=== PATIENT | male | born 1990 | race American Indian/Alaskan Native ===

== ENCOUNTER 2018-04-11 12:17 | Emergency (ER) | payer SELFPAY ==
[2018-04-11] MEDS ORDERED: ULTRAM PO ONE (14:03)
--- NOTE | 2018-04-11 14:40 | Emergency Department Report ---
ED ENT HPI - General Chief complaint: Sore Throat Stated complaint: SORE THROAT Time Seen by Provider: 04/11/18 13:48 Source: patient Mode of arrival: Ambulatory Limitations: No Limitations - History of Present Illness Initial comments: 27-year-old male with a past medical history of "chronic gastroenteritis" presents to the hospital complains of some days and nausea, sore throat, chills , generalized body aches. Overall body aches are moderate. Sulfa worse with swallowing. Denies shortness of breath and is able to swallow secretions. No sick contacts, recent travel, cough. Patient denies diarrhea or vomiting. Patient does have a primary care doctor - Related Data Previous Rx's Medication Instructions Recorded Last Taken Type Amoxicillin 500 mg PO BID #20 capsule 04/11/18 Unknown Rx Docusate Sodium [Colace] 100 mg PO BID PRN #20 capsule 04/11/18 Unknown Rx Promethazine [Phenergan TAB] 25 mg PO Q8HR PRN #20 tab 04/11/18 Unknown Rx traMADol [Ultram 50 MG tab] 50 mg PO Q6HR PRN #20 tablet 04/11/18 Unknown Rx Allergies Allergy/AdvReac Type Severity Reaction Status Date / Time No Known Allergies Allergy Unverified 04/11/18 12:33 ED Dental HPI - General Chief complaint: Sore Throat Stated complaint: SORE THROAT Time Seen by Provider: 04/11/18 13:48 Source: patient Mode of arrival: Ambulatory Limitations: No Limitations - Related Data Previous Rx's Medication Instructions Recorded Last Taken Type Amoxicillin 500 mg PO BID #20 capsule 04/11/18 Unknown Rx Docusate Sodium [Colace] 100 mg PO BID PRN #20 capsule 04/11/18 Unknown Rx Promethazine [Phenergan TAB] 25 mg PO Q8HR PRN #20 tab 04/11/18 Unknown Rx traMADol [Ultram 50 MG tab] 50 mg PO Q6HR PRN #20 tablet 04/11/18 Unknown Rx Allergies Allergy/AdvReac Type Severity Reaction Status Date / Time No Known Allergies Allergy Unverified 04/11/18 12:33 ED Review of Systems ROS: Stated complaint: SORE THROAT Other details as noted in HPI Comment: All other systems reviewed and negative ED Past Medical Hx - Past Medical History Previous Medical History?: No - Surgical History Past Surgical History?: No - Social History Smoking Status: Current Every Day Smoker Substance Use Type: None - Medications Home Medications: Home Medications Medication Instructions Recorded Confirmed Last Taken Type Amoxicillin 500 mg PO BID #20 capsule 04/11/18 Unknown Rx Docusate Sodium [Colace] 100 mg PO BID PRN #20 capsule 04/11/18 Unknown Rx Promethazine [Phenergan TAB] 25 mg PO Q8HR PRN #20 tab 04/11/18 Unknown Rx traMADol [Ultram 50 MG tab] 50 mg PO Q6HR PRN #20 tablet 04/11/18 Unknown Rx ED Physical Exam - General Limitations: No Limitations - Other Other exam information: General: No limitations, patient is alert in no acute distress Head exam: Atraumatic, normocephalic Eyes exam: Normal appearance, pupils equal reactive to light, extraocular movements intact ENT: Moist mucous membrane, right tonsil mildly swollen with mild exudate. Tender cervical nodes. Neck exam: Normal inspection, full range of motion, no meningismus nontender Respiratory exam: Clear to auscultation bilateral, no wheezes, rales, crackles Cardiovascular: Normal rate and rhythm, normal heart sounds Abdomen: Soft, nondistended, and nontender, with normal bowel sounds, no rebound, or guarding Extremity: Full range of motion normal inspection no deformity Back: Normal Inspection, full range of motion, no tenderness Neurologic: Alert, oriented x3, cranial nerves intact, no motor or sensory deficit Psychiatric: normal affect, normal mood Skin: Warm, dry, intact ED Course Vital Signs 04/11/18 12:30 Temperature 98.6 F Pulse Rate 70 Respiratory 16 Rate Blood Pressure 116/69 O2 Sat by Pulse 99 Oximetry - Reevaluation(s) Reevaluation #1: 04/11/18 14:37 patient given tramadol in the ED ED Medical Decision Making - Medical Decision Making Sore throat and body aches and subjective fever Patient will be treated empirically for pharyngitis with amoxicillin He downloaded the [employer] jolly on Phone to assist with affordability of medication Requesting Phenergan for his chronic nausea and vomiting secondary to his chronic gastrointestinal issues - Differential Diagnosis viral syndrome, pharyngitis, strep throat Critical Care Time: No Critical care attestation.: If time is entered above; I have spent that time in minutes in the direct care of this critically ill patient, excluding procedure time. ED Disposition Clinical Impression: Pharyngitis, Chronic nausea Disposition: DC-01 TO HOME OR SELFCARE Is pt being admited?: No Does the pt Need Aspirin: No Condition: Stable Instructions: Pharyngitis (ED) Additional Instructions: Take the medication as prescribed. Follow-up with your doctor or the clinic provided. Return if symptoms worsen as indicated by your discharge instructions Prescriptions: Amoxicillin 500 mg PO BID #20 capsule Docusate Sodium [Colace] 100 mg PO BID PRN #20 capsule PRN Reason: Constipation Promethazine [Phenergan TAB] 25 mg PO Q8HR PRN #20 tab PRN Reason: Nausea traMADol [Ultram 50 MG tab] 50 mg PO Q6HR PRN #20 tablet PRN Reason: Pain Referrals: PRIMARY CARE, [Primary Care Provider] - 3-5 Days [facility] [Provider Group] - 3-5 Days Forms: Work/School Release Form(ED) Time of Disposition: 14:40
[2018-04-11 15:02] VITALS: BP 133/86
== END 2018-04-11 15:03 | disposition home or self-care (01) ==
LOC: ED 12:17
DX: J02.9 Acute pharyngitis, unspecified (principal); R11.0 Nausea; F17.200 Nicotine dependence, unspecified, uncomplicated
CPT/HCPCS: 99282

== ENCOUNTER 2020-10-06 23:12 | Emergency (ER) | payer SELFPAY ==
[2020-10-07 00:27] LABS: Basophils # (Auto) 0.1 K/mm3 (0.0-0.1); Basophils % (Auto) 0.7 % (0.0-1.8); Eosinophils # (Auto) 0.3 K/mm3 (0.0-0.4); Eosinophils % (Auto) 2.6 % (0.0-4.3); Hematocrit 46.1 % (35.5-45.6); Hemoglobin 15.1 gm/dl (11.8-15.2); Lymphocytes # (Auto) 2.5 K/mm3 (1.2-5.4); Lymphocytes % (Auto) 21.6 % (13.4-35.0); Mean Corpuscular HGB Conc 33 % (32-34); Mean Corpuscular Volume 87 fl (84-94); Monocytes # (Auto) 0.6 K/mm3 (0.0-0.8); Monocytes % (Auto) 5.5 % (0.0-7.3); Platelet Count 204 K/mm3 (140-440); Red Blood Count 5.29 M/mm3 (3.65-5.03); Red Cell Distribution Width 14.3 % (13.2-15.2)
[2020-10-07 00:51] LABS: Alanine Aminotransferase 20 units/L (7-56); Albumin 3.8 g/dL (3.9-5); BUN/Creatinine Ratio 10; Blood Urea Nitrogen 11 mg/dL (9-20); Calcium 8.9 mg/dL (8.4-10.2); Hemolysis Index 15
--- NOTE | 2020-10-07 03:29 | Emergency Department Report ---
ED General Adult HPI - General Chief complaint: Abdominal Pain Stated complaint: SHARP STOMACH PAIN Time Seen by Provider: 10/07/20 03:25 Source: patient Mode of arrival: Ambulatory Limitations: No Limitations - History of Present Illness Initial comments: Patient is a 30-year-old male that presents emergency room for abdominal pain nausea vomiting x2 days. Patient states that his abdominal pain and nausea are intermittent. Patient states not having at this time. Patient states it is a abdominal cramping that comes and goes. Patient denies vomiting. Patient denies severe pain. Patient states when it comes it is a 4-6 out of 10. Patient states that it is tolerable. Patient dates he has history of Crohn's. Patient states when the pain comes periumbilical. Patient denies fever and chills. Patient denies blood in his stool. Patient denies diarrhea. Patient states that he actually came in for an STD exposure. Patient states he wants to get checked with his girlfriend and the girlfriend came out positive for gonorrhea. Patient denies penile discharge. Patient denies dysuria. Patient denies any lower abdominal pain. Patient states he wants to be treated here. Patient states he does not want to go to another place. Patient states that the abdominal pain started shortly after being told that he might have an STD. Patient states he has been anxious. Patient denies recent travel. Patient denies recent international travel. Patient denies exposure to the novel coronavirus. Patient denies sick contacts. Patient denies fever and chills. Patient denies cough. Patient denies diarrhea. Patient denies coming in contact with anybody with symptoms of the novel coronavirus. -: Sudden - Related Data Previous Rx's Medication Instructions Recorded Last Taken Type Amoxicillin 500 mg PO BID #20 capsule 04/11/18 Unknown Rx Docusate Sodium [Colace] 100 mg PO BID PRN #20 capsule 04/11/18 Unknown Rx Promethazine [Phenergan TAB] 25 mg PO Q8HR PRN #20 tab 04/11/18 Unknown Rx traMADoL [Ultram 50 MG tab] 50 mg PO Q6HR PRN #20 tablet 04/11/18 Unknown Rx Azithromycin [Zithromax] 500 mg PO DAILY #2 tablet 10/07/20 Unknown Rx Sulfamethoxazole/Trimethoprim 1 each PO BID 7 Days #14 tablet 10/07/20 Unknown Rx [Bactrim DS TAB] Allergies Allergy/AdvReac Type Severity Reaction Status Date / Time No Known Allergies Allergy Unverified 04/11/18 12:33 ED Review of Systems ROS: Stated complaint: SHARP STOMACH PAIN Other details as noted in HPI Constitutional: denies: chills, fever Eyes: denies: eye pain, eye discharge, vision change ENT: denies: ear pain, throat pain Respiratory: denies: cough, shortness of breath, wheezing Cardiovascular: denies: chest pain, palpitations Endocrine: no symptoms reported Gastrointestinal: abdominal pain. denies: nausea, diarrhea Genitourinary: denies: urgency, dysuria Musculoskeletal: denies: back pain, joint swelling, arthralgia Skin: denies: rash, lesions Neurological: denies: headache, weakness, paresthesias Psychiatric: denies: anxiety, depression Hematological/Lymphatic: denies: easy bleeding, easy bruising ED Past Medical Hx - Past Medical History Previous Medical History?: Yes Additional medical history: Matt's Disesse - Surgical History Past Surgical History?: No - Family History Family history: no significant - Social History Smoking Status: Current Every Day Smoker Substance Use Type: Marijuana - Medications Home Medications: Home Medications Medication Instructions Recorded Confirmed Last Taken Type Amoxicillin 500 mg PO BID #20 capsule 04/11/18 Unknown Rx Docusate Sodium [Colace] 100 mg PO BID PRN #20 capsule 04/11/18 Unknown Rx Promethazine [Phenergan TAB] 25 mg PO Q8HR PRN #20 tab 04/11/18 Unknown Rx traMADoL [Ultram 50 MG tab] 50 mg PO Q6HR PRN #20 tablet 04/11/18 Unknown Rx Azithromycin [Zithromax] 500 mg PO DAILY #2 tablet 10/07/20 Unknown Rx Sulfamethoxazole/Trimethoprim 1 each PO BID 7 Days #14 tablet 10/07/20 Unknown Rx [Bactrim DS TAB] ED Physical Exam - General Limitations: No Limitations General appearance: alert, in no apparent distress - Head Head exam: Present: atraumatic, normocephalic - Eye Eye exam: Present: normal appearance - ENT ENT exam: Present: mucous membranes moist - Neck Neck exam: Present: normal inspection - Respiratory Respiratory exam: Present: normal lung sounds bilaterally. Absent: respiratory distress - Cardiovascular Cardiovascular Exam: Present: regular rate, normal rhythm. Absent: systolic murmur, diastolic murmur, rubs, gallop - GI/Abdominal GI/Abdominal exam: Present: soft, normal bowel sounds. Absent: distended, tenderness, guarding - Rectal Rectal exam: Present: deferred - Extremities Exam Extremities exam: Present: normal inspection - Back Exam Back exam: Present: normal inspection - Neurological Exam Neurological exam: Present: alert, oriented X3 - Psychiatric Psychiatric exam: Present: normal affect, normal mood - Skin Skin exam: Present: warm, dry, intact, normal color. Absent: rash ED Course Vital Signs 10/07/20 10/07/20 00:10 04:00 Temperature 98.2 F 98.7 F Pulse Rate 85 69 Respiratory 18 14 Rate Blood Pressure 144/83 Blood Pressure 131/81 [Left] O2 Sat by Pulse 98 98 Oximetry - Reevaluation(s) Reevaluation #1: I discussed all results and clinical findings with patient. I discussed plan of care with patient. Patient agrees with plan of care. Patient is stable for discharge. Patient will be discharged home. Patient given discharge instructions. Patient voiced understanding of discharge instructions. 10/07/20 04:38 ED Medical Decision Making - Lab Data Result diagrams: 10/07/20 00:13 10/07/20 00:13 - Medical Decision Making Patient is a 30-year-old male that presents emergency room with complaints of intermittent abdominal pain, STD exposure, nausea. Patient states 2 days ago the patient symptoms started after being told that he had a possible exposure to gonorrhea. Patient denied abdominal pain while in ER. Patient's main reason for coming to the ER was treatment for possible gonorrhea. Patient had labs ordered in triage based on his complaint of abdominal pain. Patient's labs are essentially markable except for a UTI. Patient given Rocephin IM in ER. Patient given prescription for Zithromax and Bactrim. Patient stable for discharge. Patient discharged home. - Differential Diagnosis Abdominal pain, UTI, nausea. STD exposure Critical care attestation.: If time is entered above; I have spent that time in minutes in the direct care of this critically ill patient, excluding procedure time. ED Disposition Clinical Impression: Nausea, STD (male), Exposure to gonorrhea Abdominal pain Qualifiers: Abdominal location: periumbilical Qualified Code(s): R10.33 - Periumbilical pain UTI (urinary tract infection) Qualifiers: Urinary tract infection type: acute cystitis Hematuria presence: with hematuria Qualified Code(s): N30.01 - Acute cystitis with hematuria Disposition: TO HOME OR SELFCARE Is pt being admited?: No Does the pt Need Aspirin: No Condition: Stable Instructions: Safe Sex, Abdominal Pain, Adult, [id number], Urinary Tract Infection, Adult, [id number] Additional Instructions: Patient to follow-up with primary care in 2 to 3 days. Patient to follow-up with health department or urologist in 2 to 3 days. Patient to rest. Patient to increase water. Patient to avoid sexual activity until cleared by urologist and health department.. Patient to take Tylenol or ibuprofen as needed for pain. Patient to take meds as directed. Patient to return to the ER if condition worsens, changes or new symptoms arise. Prescriptions: Sulfamethoxazole/Trimethoprim [Bactrim DS TAB] 1 each PO BID 7 Days #14 tablet Azithromycin [Zithromax] 500 mg PO DAILY #2 tablet Referrals: PRIMARY CARE, [Primary Care Provider] - 2-3 Days Time of Disposition: 04:34
[2020-10-07 03:52] LABS: Bilirubin,Urine NEG (Negative); Blood,Urine NEG (Negative); Color,Urine Yellow (Yellow); Mucus,Urine FEW /HPF; Protein,Urine <15 mg/dL mg/dL (Negative); Urobilinogen,Urine < 2.0 mg/dL (<2.0)
[2020-10-07] MEDS ORDERED: LIDOCAINE-MPF (1%) 10 MG/1 ML VIAL 5 ML INFILTRATI ONE (04:31)
[2020-10-07 05:01] VITALS: BP 122/80
== END 2020-10-07 05:09 | disposition home or self-care (01) ==
LOC: ED 23:12
DX: N39.0 Urinary tract infection, site not specified (principal); A64 Unspecified sexually transmitted disease; Z20.2 Contact with and (suspected) exposure to infections with a predominantly sexual mode of transmission; F17.200 Nicotine dependence, unspecified, uncomplicated; F12.10 Cannabis abuse, uncomplicated; Z79.899 Other long term (current) drug therapy
CPT/HCPCS: 36415; 80053; 81001; 83690; 85025; 87086; 96372; 99283; J0696